=== PATIENT | female | born 1945 | race Hispanic/Latino ===

== ENCOUNTER 2016-11-29 20:02 | Emergency (ER) | payer MEDICARE ==
[2016-11-29 20:14] VITALS: BMI 26.2
[2016-11-29 20:18] VITALS: BP 142/74; RESP 16; O2SAT 98
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
[2016-11-29 22:05] LABS: URINE APPEARANCE CLEAR (CLEAR); URINE BILIRUBIN NEGATIVE (NEGATIVE); URINE BLOOD NEGATIVE (NEGATIVE); URINE COLOR YELLOW (YELLOW); URINE GLUCOSE (UA) NEGATIVE (NEGATIVE); URINE KETONE NEGATIVE (NEGATIVE); URINE LEUKOCYTE ESTERASE SMALL Leu/uL (NEGATIVE); URINE PROTEIN TRACE mg/dL (<30 mg/dL); URINE UROBILINOGEN 0.2 E.U./dL (<1 E.U./dL)
[2016-11-29 22:09] LABS: URINE AMORPHOUS SEDIMENT FEW; URINE BACTERIA MANY (NEG)
[2016-11-29 22:29] VITALS: PULSE 80; TEMP 98.2
--- NOTE | 2016-11-30 12:31 | RAD ---
PROCEDURE: Radiographs of the Lumbar Spine. HISTORY: fall COMPARISON: No prior. FINDINGS: BONES: There is age indeterminate compression deformity superior L2 endplate which has progressed when compared with the prior study. This is likely chronic due to the presence of anterolateral osteophyte formation. In addition, there is slight chronic anterior wedging of the L1 and T12 segments. DISC SPACES: Multilevel degenerative spondylosis. Changes include varying degrees of disc space narrowing with endplate eburnation and anterolateral osteophyte formation. The facet joints are hypertrophic L5-S1 through the L2-L3 levels in decreasing order of severity Slight levoscoliosis centered at the L4-L5 level. OTHER FINDINGS: None. IMPRESSION: Age indeterminate compression fracture superior L2 endplate which has progressed since prior study however this is likely chronic due to the presence of anterolateral osteophyte formation however clinical correlation recommended. If acute fracture suspected clinically recommend followup CT scan. Minor chronic anterior wedging of the L1 -T12 segments. Multilevel degenerative spondylosis.
--- NOTE | 2016-11-30 12:50 | RAD ---
Chest left rib series 11/29/2016. History: Status post fall. Frontal view of the chest and 3 additional views of the left wrist performed. Correlation made with prior chest radiograph 12/30/2011. Findings: The heart size is within range of normal. Aorta is slightly ectatic and uncoiled. Calcification of the aortic knob. There is slight distortion of the mediastinum due to a mild dextroscoliosis centered in the upper/mid thoracic region. Poor inspiration with low lung volumes, mild crowded bronchovascular markings and mild bibasilar atelectasis. No evidence of effusion or pneumothorax. The visualized left ribs appear grossly intact so far as can be seen within the limitations secondary to overlying bed sheet artifact. If symptoms persist or occult fracture suspected clinically recommend followup CT scan of the chest. Old partially healed fracture deformity midshaft right clavicle. Degenerative changes of the shoulder girdles bilaterally The mild multilevel degenerative spondylosis of the thoracic spine with dextroscoliosis as mentioned above. Impression: Poor inspiration with low lung volumes, mild crowded bronchovascular markings and bibasilar atelectasis. . No definitive evidence of acute left-sided rib fracture however if symptoms persist consider followup on CT scan of the chest. No evidence of pneumothorax.
--- NOTE | 2016-11-30 13:10 | RAD ---
PROCEDURE: Pelvis dated 11/29/2016 HISTORY: fall COMPARISON: Comparison made with pelvis radiographs 12/12/2016. TECHNIQUE: AP and both obliques views of the pelvis performed. FINDINGS: Current study reveals no definitive radiographic evidence of acute displaced fracture nor dislocation. The osseous structures appear intact. Both femoral heads appropriately located within the respective acetabula. Arthritic changes both hips. There is mild sclerosis seen along the symphysis. Mild degenerative spondylosis of the lower lumbar and sacral spine IMPRESSION: No definitive evidence of acute displaced fracture nor dislocation. If symptoms persist or occult fracture suspected clinically recommend followup CT scan of the pelvis and hips.
== END 2016-11-29 22:29 | disposition home or self-care (01) ==
LOC: ED 20:02
DX: N39.0 Urinary tract infection, site not specified (principal); M54.9 Dorsalgia, unspecified

== ENCOUNTER 2017-09-20 19:25 | Inpatient (IN) | payer MEDICARE ==
[2017-09-20 19:25] VITALS: BMI 26.2
[2017-09-20 20:13] LABS: BASO # 0.01 K/mm3 (0.0-2.0); BASO % 0.1 % (0.0-3.0); EOS % 0.1 % (1.5-5.0); GRAN # 7.48 (1.4-6.5); HEMOGLOBIN 12.9 g/dL (12.0-16.0); MEAN CORPUSCULAR HEMOGLOBIN 31.6 pg (25.0-35.0); MEAN CORPUSCULAR HGB CONC 31.9 g/dl (31.0-37.0); MEAN PLATELET VOLUME 10.1 fl (7.0-11.0); MONO # 0.5 (0.1-0.6); MONO % 5.8 % (1.0-6.0); RBC 4.08 10^6/uL (3.5-6.1); RED CELL DISTRIBUTION WIDTH 13.9 % (11.5-14.5)
[2017-09-20 20:28] LABS: ALB/GLOB RATIO 1.1 (1.1-1.8); ALBUMIN 4.2 g/dL (3.0-4.8); ALT/SGPT 18 U/L (7-56); AST/SGOT 23 U/L (14-36); BLOOD UREA NITROGEN 22 mg/dL (7-21); CALCIUM 9.9 mg/dL (8.4-10.5); GFR AFRICAN-AMERICAN > 60; GFR NON-AFRICAN AMERICAN > 60
[2017-09-20 20:38] LABS: TROPONIN I < 0.01 ng/mL
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
--- NOTE | 2017-09-20 22:26 | CT ---
EXAM: CT Head Without Intravenous Contrast CLINICAL HISTORY: 72 years old, female; Signs and symptoms; Dizziness; Additional info: Headache TECHNIQUE: Axial computed tomography images of the head/brain without intravenous contrast. All CT scans at this facility use one or more dose reduction techniques, viz.: automated exposure control; ma/kV adjustment per patient size (including targeted exams where dose is matched to indication; i.e. head); or iterative reconstruction technique. Coronal and sagittal reformatted images were created and reviewed. COMPARISON: No relevant prior studies available. FINDINGS: Brain: Mild atrophy. No intracranial hemorrhage. No mass. Minimal decreased attenuation within periventricular white matter. No definite edema. Ventricles: No hydrocephalus. Bones/joints: No acute fracture. Soft tissues: Unremarkable. Vasculature: Atherosclerotic disease of intracranial arteries. Sinuses: No acute sinusitis. Mastoid air cells: No mastoid effusion. Orbits: Unremarkable as visualized. IMPRESSION: 1. Nonspecific white matter changes. Acute infarction may be CT occult within first 24 hours. If a focal deficit persists, consider followup CT or MRI for further evaluation. 2. Incidental/non-acute findings are described above.
[2017-09-20 23:37] LABS: URINE BILIRUBIN NEGATIVE (NEGATIVE); URINE BLOOD NEGATIVE (NEGATIVE); URINE GLUCOSE (UA) NEGATIVE (NEGATIVE); URINE LEUKOCYTE ESTERASE NEGATIVE Leu/uL (NEGATIVE); URINE NITRATE NEGATIVE (NEGATIVE); URINE PROTEIN NEGATIVE mg/dL (<30 mg/dL); URINE UROBILINOGEN 0.2 E.U./dL (<1 E.U./dL)
[2017-09-20 23:42] LABS: URINE APPEARANCE CLEAR (CLEAR); URINE COLOR YELLOW (YELLOW)
[2017-09-20] MEDS ORDERED: Adalimumab [Humira] 40 MG SC SCH (23:45)
[2017-09-20] MEDS ORDERED: Acetaminophen 650mg/20.3ml solution UD PO STA (23:59)
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
[2017-09-21 06:30] LABS: BASO # 0.02 K/mm3 (0.0-2.0); BASO % 0.2 % (0.0-3.0); EOS # 0.1 (0.0-0.7); EOS % 0.7 % (1.5-5.0); GRAN # 4.6 (1.4-6.5); GRAN % 54.8 % (50.0-68.0); HEMOGLOBIN 11.9 g/dL (12.0-16.0); LYMPH % 35.5 % (22.0-35.0); MEAN CELL VOLUME 99.2 fl (80.0-105.0); MEAN CORPUSCULAR HEMOGLOBIN 31.1 pg (25.0-35.0); MEAN CORPUSCULAR HGB CONC 31.3 g/dl (31.0-37.0); MEAN PLATELET VOLUME 10.4 fl (7.0-11.0); MONO # 0.7 (0.1-0.6); MONO % 8.8 % (1.0-6.0); RBC 3.83 10^6/uL (3.5-6.1); WHITE BLOOD COUNT 8.4 10^3/ul (4.5-11.0)
[2017-09-21 07:13] LABS: ALB/GLOB RATIO 1.1 (1.1-1.8); ALBUMIN 3.5 g/dL (3.0-4.8); ALT/SGPT 20 U/L (7-56); AST/SGOT 25 U/L (14-36); BLOOD UREA NITROGEN 15 mg/dL (7-21); CALCIUM 9.3 mg/dL (8.4-10.5); GFR AFRICAN-AMERICAN > 60; GFR NON-AFRICAN AMERICAN > 60
[2017-09-21] MEDS: Sodium Chloride 0.9% 1,000 ML IV SCH (08:22)
[2017-09-21] MEDS: Pantoprazole 40 mg EC Tab PO SCH (08:25)
[2017-09-21] MEDS: Meloxicam 7.5 MG TAB PO SCH (09:46)
[2017-09-21] MEDS: Acetaminophen 650mg/20.3ml solution UD PO SCH ×2 (09:47→15:15)
--- NOTE | 2017-09-21 09:52 | RAD ---
PROCEDURE: CHEST RADIOGRAPH, 1 VIEW HISTORY: pain COMPARISON: None available. FINDINGS: LUNGS: Clear. PLEURA: No pneumothorax or pleural fluid seen. CARDIOVASCULAR: Normal. OSSEOUS STRUCTURES: No significant abnormalities. VISUALIZED UPPER ABDOMEN: Normal. OTHER FINDINGS: None. IMPRESSION: No active disease.
[2017-09-21] MEDS ORDERED: Ergocalciferol 50,000 Intl Units Cap PO SCH (10:00)
--- NOTE | 2017-09-21 14:41 | CARD ---
APPROVED REPORT EKG Measurement Heart [id number] <Conclusion> Normal sinus rhythm Normal ECG
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
[2017-09-22] MEDS: Pantoprazole 40 mg EC Tab PO SCH (05:31)
[2017-09-22 06:24] LABS: BASO # 0.01 K/mm3 (0.0-2.0); BASO % 0.1 % (0.0-3.0); EOS # 0.1 (0.0-0.7); EOS % 1.4 % (1.5-5.0); GRAN # 3.59 (1.4-6.5); GRAN % 45.2 % (50.0-68.0); HEMOGLOBIN 11.8 g/dL (12.0-16.0); LYMPH # 3.5 (1.2-3.4); LYMPH % 44.3 % (22.0-35.0); MEAN PLATELET VOLUME 10.2 fl (7.0-11.0); MONO # 0.7 (0.1-0.6); RBC 3.81 10^6/uL (3.5-6.1); RED CELL DISTRIBUTION WIDTH 13.8 % (11.5-14.5)
[2017-09-22 06:48] LABS: ALBUMIN 3.2 g/dL (3.0-4.8); ALT/SGPT 21 U/L (7-56); AST/SGOT 34 U/L (14-36); BLOOD UREA NITROGEN 11 mg/dL (7-21); CALCIUM 8.7 mg/dL (8.4-10.5); GFR AFRICAN-AMERICAN > 60; GFR NON-AFRICAN AMERICAN > 60
[2017-09-22] MEDS ORDERED: Potassium Chloride 20 mEq ER Tab PO ONE (07:44)
[2017-09-22 08:17] VITALS: RESP 20
[2017-09-22] MEDS: Meloxicam 7.5 MG TAB PO SCH (10:07)
[2017-09-22] MEDS ORDERED: DiphenhydrAMINE 50 mg/ml Inj IVP ONE (12:15)
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
[2017-09-23] MEDS: Pantoprazole 40 mg EC Tab PO SCH (05:39)
[2017-09-23 06:50] LABS: BASO # 0.02 K/mm3 (0.0-2.0); BASO % 0.2 % (0.0-3.0); EOS # 0.2 (0.0-0.7); GRAN # 5.02 (1.4-6.5); GRAN % 53.8 % (50.0-68.0); HEMOGLOBIN 11.6 g/dL (12.0-16.0); LYMPH # 3.3 (1.2-3.4); LYMPH % 35.5 % (22.0-35.0); MEAN CELL VOLUME 100.5 fl (80.0-105.0); MEAN CORPUSCULAR HGB CONC 30.9 g/dl (31.0-37.0); MONO # 0.8 (0.1-0.6); MONO % 8.5 % (1.0-6.0); RBC 3.74 10^6/uL (3.5-6.1); RED CELL DISTRIBUTION WIDTH 13.9 % (11.5-14.5); WHITE BLOOD COUNT 9.3 10^3/ul (4.5-11.0)
[2017-09-23 08:02] LABS: ALBUMIN 3.2 g/dL (3.0-4.8); ALT/SGPT 27 U/L (7-56); AST/SGOT 20 U/L (14-36); BLOOD UREA NITROGEN 17 mg/dL (7-21); CALCIUM 9.1 mg/dL (8.4-10.5); GFR AFRICAN-AMERICAN > 60; GFR NON-AFRICAN AMERICAN > 60
[2017-09-23] MEDS: Meloxicam 7.5 MG TAB PO SCH (09:52)
[2017-09-23] MEDS ORDERED: Pneumococcal 23-Valent Vaccine IM ONE (10:00)
[2017-09-23] MEDS: Sodium Chloride 0.9% 1,000 ML IV SCH (10:02)
[2017-09-23] MEDS ORDERED: MethylPREDNISolone 40 mg Vial IVP ONE ×2 (11:49→14:37)
--- NOTE | 2017-09-23 13:06 | CP.PCM.PN ---
Subjective - Date & Time of Evaluation Date of Evaluation: 09/23/17 Time of Evaluation: 13:03 - Subjective Subjective: Ms. Anguiano was seen and examined at the bedside. She is alert, oriented. She denies any headache, weakness, but dizziness with moving her head from side to side. She further claims that changing position aggravates her dizziness and with mild nausea. She denies any blurred vision or diplopia.She is able to answer questions appropriately and follow commands. She has chronic right arm paralysis. There was no untoward events overnight. Objective - Vital Signs/Intake and Output Vital Signs (last 24 hours): Temp Pulse Resp BP Pulse Ox 97.3 F L 78 20 169/89 H 97 09/23/17 08:49 09/23/17 08:49 09/23/17 08:49 09/23/17 08:49 09/23/17 08:49 Intake and Output: 09/23/17 09/23/17 06:59 18:59 Intake Total 420 Output Total 400 Balance 20 - Medications Medications: Current Medications Acetaminophen (Tylenol 325mg Tab) 325 mg PO TID [facility] Last Admin: 09/23/17 09:52 Dose: 325 mg Baclofen (Lioresal) 10 mg PO TID [facility] Last Admin: 09/23/17 09:53 Dose: 10 mg Diazepam (Valium) 2 mg PO Q12 PRN; Protocol PRN Reason: Dizziness Ergocalciferol (Drisdol 50,000 Intl Units Cap) 1 cap PO MON [facility] Last Admin: 09/21/17 09:46 Dose: 1 cap Folic Acid (Folic Acid) 1 mg PO DAILY [facility] Last Admin: 09/23/17 09:52 Dose: 1 mg Gabapentin (Neurontin) 600 mg PO QID [facility] Last Admin: 09/23/17 09:52 Dose: 600 mg Sodium Chloride (Sodium Chloride 0.9%) 1,000 mls @ 100 mls/hr IV .Q10H [facility] Last Admin: 09/23/17 10:02 Dose: 100 mls/hr Meloxicam (Mobic) 7.5 mg PO DAILY [facility] Last Admin: 09/23/17 09:52 Dose: 7.5 mg Adalimumab [Humira] (40 Mg) 40 mg SC Q14D [facility] Non-Formulary Medication (Methotrexate [Methotrexate]) 8 tab PO WED [facility] Pantoprazole Sodium (Protonix Ec Tab) 40 mg PO 0600 [facility] Last Admin: 09/23/17 05:39 Dose: 40 mg Prednisone (Prednisone Tab) 2.5 mg PO DAILY [facility] Last Admin: 09/23/17 09:52 Dose: 2.5 mg - Labs Labs: 09/23/17 06:35 09/23/17 06:35 - Constitutional Appears: No Acute Distress - Head Exam Head Exam: NORMAL INSPECTION - Neurological Exam Neurological Exam: Alert, Awake, Oriented x3 Neuro motor strength exam: Left Upper Extremity: 5, Right Upper Extremity: 0, Left Lower Extremity: 5, Right Lower Extremity: 4 Additional comments: She is able to answer questions and follow simple commands. Sensation remains intact. Assessment and Plan (1) Vertigo Assessment & Plan: Case discussed with Dr. caicedo, continue all current medical and physical therapies. Physical therapy to do vestibular rehab, Discontinue antivert and replaced with valium 2 mg PO Q 12 PRN for her dizziness. Status: Acute
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
[2017-09-24] MEDS: Sodium Chloride 0.9% 1,000 ML IV SCH (00:49)
[2017-09-24] MEDS: Pantoprazole 40 mg EC Tab PO SCH (05:48)
[2017-09-24 07:07] LABS: GRAN # 6.22 (1.4-6.5); GRAN % 84.4 % (50.0-68.0); HEMOGLOBIN 11.4 g/dL (12.0-16.0); LYMPH # 0.9 (1.2-3.4); LYMPH % 12.2 % (22.0-35.0); MEAN CELL VOLUME 98.6 fl (80.0-105.0); MEAN CORPUSCULAR HGB CONC 31.4 g/dl (31.0-37.0); MEAN PLATELET VOLUME 10.6 fl (7.0-11.0); MONO # 0.3 (0.1-0.6); MONO % 3.4 % (1.0-6.0); RBC 3.68 10^6/uL (3.5-6.1); RED CELL DISTRIBUTION WIDTH 13.3 % (11.5-14.5); WHITE BLOOD COUNT 7.4 10^3/ul (4.5-11.0)
[2017-09-24 07:09] LABS: BLOOD UREA NITROGEN 11 mg/dL (7-21); CALCIUM 9.7 mg/dL (8.4-10.5); GFR AFRICAN-AMERICAN > 60; GFR NON-AFRICAN AMERICAN > 60
[2017-09-24] MEDS: Meloxicam 7.5 MG TAB PO SCH (09:04)
[2017-09-24 09:06] VITALS: BP 171/87; PULSE 70; TEMP 98.2; O2SAT 96
--- NOTE | 2017-09-24 09:23 | MRI ---
PROCEDURE: MRI BRAIN WITHOUT CONTRAST HISTORY: vertigo COMPARISON: None. TECHNIQUE: Multiplanar, multisequence MR images of the brain were obtained without intravenous contrast enhancement. FINDINGS: HEMORRHAGE: None DWI: No evidence of an acute or early subacute infarction. BRAIN PARENCHYMA: No mass effect or edema. No atrophy or chronic microvascular ischemic changes. VENTRICLES: Unremarkable. No hydrocephalus. CRANIUM: Unremarkable. ORBITS: Grossly unremarkable. PARANASAL SINUSES/MASTOIDS: Clear VASCULAR SYSTEM: Skull base flow voids intact. OTHER FINDINGS: None. IMPRESSION: Unremarkable non contrast enhanced MRI of the brain.
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
== END 2017-09-24 13:18 | DRG 149 ==
LOC: ED 19:25 → ERH 23:13 → 3RNO 09-21 00:33 → OBSVTOIN 09-21 15:13
PROVIDERS: ADMIT Internal Medicine; ATTEND Internal Medicine
DX: H83.09 Labyrinthitis, unspecified ear (principal); G62.9 Polyneuropathy, unspecified; M06.9 Rheumatoid arthritis, unspecified; G83.21 Monoplegia of upper limb affecting right dominant side; R26.81 Unsteadiness on feet